=== PATIENT | male | born 1965 ===

== ENCOUNTER 2017-08-28 15:06 | Emergency (ER) | payer SELFPAY ==
[2017-08-28] MEDS ORDERED: CALC500T6 PO (15:21)
[2017-08-28] MEDS ORDERED: POTA20TA94 PO (15:21)
[2017-08-28] MEDS ORDERED: HYDROmorphone* 1 MG/ML 1 MG/ML ML IVP ONE (15:30)
[2017-08-28] MEDS ORDERED: ONDANSETRON 4 MG/2 ML VIAL IVP ONE (15:30)
[2017-08-28] MEDS ORDERED: NS(*) 0.9% 1000 ML BAG 1,000 ML IV ONE (15:30)
[2017-08-28] MEDS ORDERED: ONDANSETRON 4 MG/2 ML VIAL ONE (15:35)
[2017-08-28 15:45] LABS: INR 1.12
[2017-08-28 15:46] LABS: PLATELET COUNT, AUTOMATED 213 K/uL (150-450)
[2017-08-28 16:18] VITALS: BP 111/71
--- NOTE | 2017-08-28 16:35 | RADIOLOGY IMAGING REPORT ---
[place] [facility] [place]: Osmin Rahman : 1965 MR: [id number] V: [id number] EXAM DATE: [id number] ORDERING PHYSICIAN: HEENA ESPINOZA TECHNOLOGIST: Location: [facility] Patient: Osmin Rahman : 1965 Visit/Account:[id number] Date of Sevice: 08/28/2017 ABDOMEN/PELVIS W/O CONTRAST HISTORY: Abdominal pain. Possible small bowel obstruction. TECHNIQUE: Axial images were obtained through the abdomen and pelvis without intravenous contrast . One of the following dose optimization techniques was utilized in the performance of this exam: autom ated exposure control; adjustment of the mA and/or kv according to patient size; or use of iterative reconstruction technique. Specific details can be referenced in the facility's radiology CT exam oper ational policy. CONTRAST: None COMPARISON: None. FINDINGS: Visualized lung bases: Calcified granulomas. Hepatobiliary: Gallstones. Spleen: Negative. Adrenals: Negative. Pancreas: Negative. Kidneys/ureters/bladder: 1.4 cm high attenuation lesion within the upper pole the left kidney consis tent with a hemorrhagic/proteinaceous cyst. No hydronephrosis. Bowel/peritoneum/mesentery: Bowel suture line within the right abdomen. Large amount of stool within the descending and rectosigmoid colon. No evidence of bowel obstruction or free air. Vessels: Negative. Lymph nodes: Negative. Pelvic genitourinary: Negative. Bones/body wall: Negative. Other findings: None significant IMPRESSION: 1. Large amount of distal colonic stool. 2. Gallstones. Report Dictated By: Bradley Chacko MD at 08/28/2017 4:25 PM Report E-Signed By: Bradley Chacko MD at 08/28/2017 4:30 PM [id number]
--- NOTE | 2017-09-07 08:01 | ER Report ---
History and Physical Time Seen By MD: 15:15 Allergies: Coded Allergies: Iodine and Iodide Containing Produc (Verified Allergy, Severe, 08/28/17) fentanyl (Verified Allergy, Unknown, 08/28/17) morphine (Verified Allergy, Unknown, 08/28/17) promethazine (Verified Allergy, Unknown, 08/28/17) Home Meds Reported Medications Calcium Carbonate (CALCIUM) 500 Mg Tablet, 500 MG PO DAILY 08/28/17 Potassium Chloride (POTASSIUM CHLORIDE) 20 Meq Tab.er.prt, 20 MEQ PO BID 08/28/17 Medical Decision Making Data Points Laboratory Hematology Test 08/28/17 15:28 Red Blood Count 3.61 M/uL (4.00-5.60) Mean Corpuscular Volume 72.6 fL (80.0-96.0) Mean Corpuscular Hemoglobin 23.6 pg (26.0-33.0) Mean Corpuscular Hemoglobin Concent 32.5 g/dL (32.0-36.0) Red Cell Distribution Width 20.3 % (11.5-14.5) Mean Platelet Volume 7.2 fL (7.2-11.1) Neutrophils (%) (Auto) 64.6 % (39.4-72.5) Lymphocytes (%) (Auto) 17.7 % (17.6-49.6) Monocytes (%) (Auto) 14.8 % (4.1-12.4) Eosinophils (%) (Auto) 2.2 % (0.4-6.7) Basophils (%) (Auto) 0.7 % (0.3-1.4) Nucleated RBC Relative Count (auto) 0.1 /100WBC Neutrophils # (Auto) 3.0 K/uL (2.0-7.4) Lymphocytes # (Auto) 0.8 K/uL (1.3-3.6) Monocytes # (Auto) 0.7 K/uL (0.3-1.0) Eosinophils # (Auto) 0.1 K/uL (0.0-0.5) Basophils # (Auto) 0.0 K/uL (0.0-0.1) Nucleated RBC Absolute Count (auto) 0.00 K/uL Prothrombin Time 14.5 seconds (12.0-14.4) Prothromb Time International Ratio 1.12 Activated Partial Thromboplast Time 28 seconds (23-35) Sodium Level 141 mmol/L (137-145) Potassium Level 4.1 mmol/L (3.5-5.0) Chloride Level 105 mmol/L (98-107) Carbon Dioxide Level 21 mmol/L (22-30) Blood Urea Nitrogen 13 mg/dl (9-21) Creatinine 0.80 mg/dl (0.66-1.25) Glomerular Filtration Rate Calc > 60.0 Random Glucose 101 mg/dl (75-110) Lactate 1.7 mmol/L (0.7-2.1) Calcium Level 9.2 mg/dl (8.4-10.2) Total Bilirubin 0.2 mg/dl (0.2-1.3) Aspartate Amino Transf (AST/SGOT) 21 U/L (0-35) Alanine Aminotransferase (ALT/SGPT) 34 U/L (0-56) Alkaline Phosphatase 72 U/L (0-126) Total Protein 6.5 gm/dl (6.3-8.2) Albumin 3.7 g/dl (3.5-5.0) Lipase 124 U/L (23-300) Chemistry Test 08/28/17 15:28 White Blood Count 4.7 k/uL (4.5-11.0) Red Blood Count 3.61 M/uL (4.00-5.60) Hemoglobin 8.5 g/dL (14.0-18.0) Hematocrit 26.2 % (42.0-52.0) Mean Corpuscular Volume 72.6 fL (80.0-96.0) Mean Corpuscular Hemoglobin 23.6 pg (26.0-33.0) Mean Corpuscular Hemoglobin Concent 32.5 g/dL (32.0-36.0) Red Cell Distribution Width 20.3 % (11.5-14.5) Platelet Count 213 K/uL (150-450) Mean Platelet Volume 7.2 fL (7.2-11.1) Neutrophils (%) (Auto) 64.6 % (39.4-72.5) Lymphocytes (%) (Auto) 17.7 % (17.6-49.6) Monocytes (%) (Auto) 14.8 % (4.1-12.4) Eosinophils (%) (Auto) 2.2 % (0.4-6.7) Basophils (%) (Auto) 0.7 % (0.3-1.4) Nucleated RBC Relative Count (auto) 0.1 /100WBC Neutrophils # (Auto) 3.0 K/uL (2.0-7.4) Lymphocytes # (Auto) 0.8 K/uL (1.3-3.6) Monocytes # (Auto) 0.7 K/uL (0.3-1.0) Eosinophils # (Auto) 0.1 K/uL (0.0-0.5) Basophils # (Auto) 0.0 K/uL (0.0-0.1) Nucleated RBC Absolute Count (auto) 0.00 K/uL Prothrombin Time 14.5 seconds (12.0-14.4) Prothromb Time International Ratio 1.12 Activated Partial Thromboplast Time 28 seconds (23-35) Glomerular Filtration Rate Calc > 60.0 Lactate 1.7 mmol/L (0.7-2.1) Calcium Level 9.2 mg/dl (8.4-10.2) Total Bilirubin 0.2 mg/dl (0.2-1.3) Aspartate Amino Transf (AST/SGOT) 21 U/L (0-35) Alanine Aminotransferase (ALT/SGPT) 34 U/L (0-56) Alkaline Phosphatase 72 U/L (0-126) Total Protein 6.5 gm/dl (6.3-8.2) Albumin 3.7 g/dl (3.5-5.0) Lipase 124 U/L (23-300) Coagulation Test 08/28/17 15:28 Prothrombin Time 14.5 seconds Prothromb Time International Ratio 1.12 Activated Partial Thromboplast Time 28 seconds HEENA ESPINOZA MD Aug 28, 2017 15:15 D/T: D/T: D/T: [address] [facility]
--- NOTE | 2017-09-30 13:30 | ER Report ---
History and Physical Time Seen By MD: 15:15 Hx. of Stated Complaint: "I THINK MY BOWEL PERFORATED AGAIN" HPI/ROS This is a 52-year-old male with a history of multiple abdominal surgeries who presents to the emergency department stating that he thinks he has a perforated bowel "again." He is from [place], and was on a bus traveling from [place] to [place] and then planned to take a plane from [place] to [place]. He states that he has had multiple small bowel obstructions as well as a perforated bowel at one point. States that he received most of his abdominal surgeries in [facility]. He says his abdomen has been distended, he feels nauseous, and describes 10 out of 10 pain. Has not had a bowel movement today. It is difficult to get a history from him as he is irritated that he is not getting immediate narcotic pain medicine. At one point he started yelling at myself and the nurse will return to gather information in the history of present illness. It is difficult to get the remainder of the history of present illness. Remainder of the 14 system rev: No Allergies: Coded Allergies: Iodine and Iodide Containing Produc (Verified Allergy, Severe, 08/28/17) fentanyl (Verified Allergy, Unknown, 08/28/17) morphine (Verified Allergy, Unknown, 08/28/17) promethazine (Verified Allergy, Unknown, 08/28/17) Home Meds Reported Medications Calcium Carbonate (CALCIUM) 500 Mg Tablet, 500 MG PO DAILY 08/28/17 Potassium Chloride (POTASSIUM CHLORIDE) 20 Meq Tab.er.prt, 20 MEQ PO BID 08/28/17 Unable To Obtain Past Medical: Refused Reviewed Nurses Notes: Yes Hx Smoking: Yes Smoking Status: Current: Every Day Smoker Hx Substance Use Disorder: Yes Hx Alcohol Use: Yes Physical Exam General Appearance: The patient is alert, has no immediate need for airway protection and no current signs of toxicity. Eyes: Pupils equal and round no injection. Respiratory: Chest is non tender, lungs are clear to auscultation. Cardiac: regular rate and rhythm Gastrointestinal: He has extensive scarring and disfigurement to his abdomen from previous surgeries. Abdomen is firm with diffuse TTP. Pt. not compliant with physical exam, so unable to listen to bowel sounds. Extremities have full range of motion and are non tender. Skin: No rashes or lesions. DIFFERENTIAL DIAGNOSIS: After history and physical exam differential diagnosis was considered for abdominal pain including but not limited to appendicitis, cholecystitis, gastritis and urinary tract infection. Medical Decision Making Data Points Laboratory Hematology Test 08/28/17 15:28 Red Blood Count 3.61 M/uL (4.00-5.60) Mean Corpuscular Volume 72.6 fL (80.0-96.0) Mean Corpuscular Hemoglobin 23.6 pg (26.0-33.0) Mean Corpuscular Hemoglobin Concent 32.5 g/dL (32.0-36.0) Red Cell Distribution Width 20.3 % (11.5-14.5) Mean Platelet Volume 7.2 fL (7.2-11.1) Neutrophils (%) (Auto) 64.6 % (39.4-72.5) Lymphocytes (%) (Auto) 17.7 % (17.6-49.6) Monocytes (%) (Auto) 14.8 % (4.1-12.4) Eosinophils (%) (Auto) 2.2 % (0.4-6.7) Basophils (%) (Auto) 0.7 % (0.3-1.4) Nucleated RBC Relative Count (auto) 0.1 /100WBC Neutrophils # (Auto) 3.0 K/uL (2.0-7.4) Lymphocytes # (Auto) 0.8 K/uL (1.3-3.6) Monocytes # (Auto) 0.7 K/uL (0.3-1.0) Eosinophils # (Auto) 0.1 K/uL (0.0-0.5) Basophils # (Auto) 0.0 K/uL (0.0-0.1) Nucleated RBC Absolute Count (auto) 0.00 K/uL Prothrombin Time 14.5 seconds (12.0-14.4) Prothromb Time International Ratio 1.12 Activated Partial Thromboplast Time 28 seconds (23-35) Sodium Level 141 mmol/L (137-145) Potassium Level 4.1 mmol/L (3.5-5.0) Chloride Level 105 mmol/L (98-107) Carbon Dioxide Level 21 mmol/L (22-30) Blood Urea Nitrogen 13 mg/dl (9-21) Creatinine 0.80 mg/dl (0.66-1.25) Glomerular Filtration Rate Calc > 60.0 Random Glucose 101 mg/dl (75-110) Lactate 1.7 mmol/L (0.7-2.1) Calcium Level 9.2 mg/dl (8.4-10.2) Total Bilirubin 0.2 mg/dl (0.2-1.3) Aspartate Amino Transf (AST/SGOT) 21 U/L (0-35) Alanine Aminotransferase (ALT/SGPT) 34 U/L (0-56) Alkaline Phosphatase 72 U/L (0-126) Total Protein 6.5 gm/dl (6.3-8.2) Albumin 3.7 g/dl (3.5-5.0) Lipase 124 U/L (23-300) Chemistry Test 08/28/17 15:28 White Blood Count 4.7 k/uL (4.5-11.0) Red Blood Count 3.61 M/uL (4.00-5.60) Hemoglobin 8.5 g/dL (14.0-18.0) Hematocrit 26.2 % (42.0-52.0) Mean Corpuscular Volume 72.6 fL (80.0-96.0) Mean Corpuscular Hemoglobin 23.6 pg (26.0-33.0) Mean Corpuscular Hemoglobin Concent 32.5 g/dL (32.0-36.0) Red Cell Distribution Width 20.3 % (11.5-14.5) Platelet Count 213 K/uL (150-450) Mean Platelet Volume 7.2 fL (7.2-11.1) Neutrophils (%) (Auto) 64.6 % (39.4-72.5) Lymphocytes (%) (Auto) 17.7 % (17.6-49.6) Monocytes (%) (Auto) 14.8 % (4.1-12.4) Eosinophils (%) (Auto) 2.2 % (0.4-6.7) Basophils (%) (Auto) 0.7 % (0.3-1.4) Nucleated RBC Relative Count (auto) 0.1 /100WBC Neutrophils # (Auto) 3.0 K/uL (2.0-7.4) Lymphocytes # (Auto) 0.8 K/uL (1.3-3.6) Monocytes # (Auto) 0.7 K/uL (0.3-1.0) Eosinophils # (Auto) 0.1 K/uL (0.0-0.5) Basophils # (Auto) 0.0 K/uL (0.0-0.1) Nucleated RBC Absolute Count (auto) 0.00 K/uL Prothrombin Time 14.5 seconds (12.0-14.4) Prothromb Time International Ratio 1.12 Activated Partial Thromboplast Time 28 seconds (23-35) Glomerular Filtration Rate Calc > 60.0 Lactate 1.7 mmol/L (0.7-2.1) Calcium Level 9.2 mg/dl (8.4-10.2) Total Bilirubin 0.2 mg/dl (0.2-1.3) Aspartate Amino Transf (AST/SGOT) 21 U/L (0-35) Alanine Aminotransferase (ALT/SGPT) 34 U/L (0-56) Alkaline Phosphatase 72 U/L (0-126) Total Protein 6.5 gm/dl (6.3-8.2) Albumin 3.7 g/dl (3.5-5.0) Lipase 124 U/L (23-300) Coagulation Test 08/28/17 15:28 Prothrombin Time 14.5 seconds Prothromb Time International Ratio 1.12 Activated Partial Thromboplast Time 28 seconds ED Course/Re-evaluation ED Course This 52-year-old male from out [facility] who was on his way back to [facility] who presented to the emergency department with severe abdominal pain. He states that he has had multiple SBOs as well as bowel perforations in the past. He is allergic to fentanyl and morphine and states he can only take Dilaudid for pain relief. He was initially given a milligram of Dilaudid, and he complained at that was not enough pain medication for him given his multiple surgeries in the past. He was agitated and uncooperative during the physical exam. He did agree to a CT scan of the abdomen and pelvis which showed nothing acute. When told about his CT scan, he became increasingly agitated yelled and screamed at myself and the nursing staff, put out his own IV, and said he was leaving. He left without signing his discharge paperwork. He refused a repeat evaluation of his abdominal pain. Decision to Disposition Date: Aug 28, 2017 Decision to Disposition Time: 17:00 Depart Departure Impression: Primary Impression: Abdominal pain Condition: Condition Unchanged Disposition: AGAINST MED ADV / DISCONT CARE Departure Forms: Medications Reconciliation, Patient Portal Information, ER Transition Record Problem Qualifiers Primary Impression: Abdominal pain Abdominal location: generalized Qualified Codes: R10.84 - Generalized abdominal pain HEENA ESPINOZA MD September 30, 2017 13:30
== END 2017-08-28 16:41 | disposition left against medical advice (07) ==
LOC: ER 15:16
DX: R10.84 Generalized abdominal pain (principal)
CPT/HCPCS: 74176; 83605; 83690; 85025; 85610; 85730; 96361; 96374; 96375; 99284; J1170; J2405; J7030; 82040; 82247; 82310; 82374; 82435; 82565; 82947; 84075; 84132; 84155; 84295; 84450; 84460; 84520